=== PATIENT | female | born 2000 | race Two or more races ===

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

== ENCOUNTER 2023-04-12 09:59 | Outpatient (CLI) | payer OTHER ==
[~2023-04-12 09:59] MED LIST changes: +ALBUTEROL2.5 MG/3 M IH; +ZITHROMAX500 MG PO
== END 2023-04-12 10:10 | disposition home or self-care (01) ==
LOC: TOM 09:59
PROVIDERS: ATTEND Urology
DX: N32.9 Bladder disorder, unspecified (principal)

== ENCOUNTER 2023-04-18 08:14 | Outpatient (CLI) | payer OTHER | END 2023-04-18 08:30 | disposition home or self-care (01) | LOC: MRI 08:14 | PROVIDERS: ATTEND Urology | DX: N32.9 Bladder disorder, unspecified (principal) | CPT/HCPCS: 72195; 74181 ==